=== PATIENT | female | born 2000 | race Caucasian/White ===

== ENCOUNTER 2024-02-15 13:26 | Emergency (ER) | payer BC, SELFPAY ==
[2024-02-15 13:26] VITALS: BMI 26.5
[2024-02-15 13:38] VITALS: BP 140/90
--- NOTE | 2024-02-15 14:07 | ED.GENMED ---
History of Present Illness
General
Chief Complaint: Cold/Flu/URI Symptoms
Source: patient
Time Seen by Provider: 02/15/24 13:46
History of Present Illness
History of Present Illness:
23yoF with a history of anxiety and depression presenting for evaluation of a cough. Patient initially started with URI symptoms last week. She was treated with a Z-Maksim and symptoms improved although she had a lingering cough. She started to get
URI symptoms again 3 days ago. Symptoms include cough, congestion, ear pressure, swollen glands, and diarrhea. She also had a fever of 101 2 days ago. She was seen by her PCP 3 days ago and was started on amoxicillin and a Medrol Dosepak.
Symptoms have not gotten any better since starting these medications. She now reports a sharp central chest pain. Pain is worse with deep breathing and if she lays flat.
Phy Exam
General Physical Exam
General Presentation: well appearing and no apparent distress
General age: appears stated age
General Skin: warm and dry
General Habitus: normal
General Mental: alert
General Hydration: appears well hydrated
ENT Exam
ENT Exam: TM's normal, pharynx normal, neck supple, normocephalic and lymphnodes
Eye Exam
Eye Exam: conjunctiva normal
Cardiovascular Exam
Cardiovascular Exam: regular rate/rhythm and no murmur
Pulmonary Exam
Pulmonary Exam: lungs clear, no respiratory distress, no rales, no crackles and no rhonchi
Neurological Exam
Neurological Exam: alert
Ramiro Coma Scale
Eye Opening: Spontaneous
Verbal Response: Oriented
Motor Response: Obeys Commands
GCS Total Score: 15
Skin Exam
Skin Exam: normal color and warm/dry
Psychiatric Exam
Psychiatric Exam: normal mood/affect
Course
Orders/Labs/Results
Orders:
Orders
02/15/24 13:45
CXR2 [CR Chest - 2 Views ] Urgent
Comment:
Reason For Exam: cough for two wks
02/15/24 14:07
Electrocardiogram (*1) Urgent
Reason for Study: Chest Pain
EKG- Treatment ONCE
Test Result ONCE
02/15/24 14:27
COVID-19 Antigen Urgent
Source: Nasal Swab
Complete Blood Count/With Diff Urgent
Comprehensive Metabolic Panel Urgent
D-Dimer Urgent
HCG, Serum Qualitative Screen Urgent
Troponin I Urgent
Influenza A+B Rapid Molecular Urgent
ALON Source: Nasal Swab
Specimen Description:
Abnormal Lab Results
02/15/24
14:27
WBC 11.3 H 10^3/uL
(4.8-10.8)
MCH 31.2 H pg
(27.0-31.0)
Abs Immat Gran (auto) 0.2 H 10^3/uL
(0-0.05)
Absolute Neuts (auto) 9.2 H 10^3/uL
(1.4-6.5)
Absolute Monos (auto) 0.7 H 10^3/uL
(0.1-0.6)
Immature Gran % 1.7 H %
(0-0.5)
Neutrophils % 81.0 H %
(42.2-75.2)
Lymphocytes % 10.2 L %
(20.5-51.1)
AST 50 H U/L
(14-36)
02/15/24 14:27
02/15/24 14:27
Vital Signs
Initial and Last Documented VS:
Initial Vital Signs
Temp Pulse Resp BP Pulse Ox
98.0 F 111 18 140/90 98
02/15/24 13:38 02/15/24 13:38 02/15/24 13:38 02/15/24 13:38 02/15/24 13:38
Last Documented Vital Signs
Temp Pulse Resp BP Pulse Ox
98.0 F 86 18 101/62 98
02/15/24 13:38 02/15/24 15:45 02/15/24 15:45 02/15/24 15:00 02/15/24 15:45
MDM/Problems Addressed
Differential Diagnosis Includes:
23yoF here with URI symptoms, cough, and chest pain. Currently on amoxicillin and Medrol dose pack for 3 days but not getting better. HR 111. Remainder of labs unremarkable. Oxygen saturation 98% on room air. She is well-appearing in no acute
distress. Exam is reassuring. Differential diagnosis includes but is not limited to: Viral illness, bronchitis, pneumonia, sinusitis
Initial ED plan: Check cardiac labs, D-dimer, EKG, COVID/flu swab, and chest x-ray.
*EKG
Interpreted by ED Provider?: Yes
EKG Intrepretation Date: 02/15/24
Heart Rate: 92
Rate: normal
Rhythm: sinus
[place]: normal axis
Interval: normal interval
QRS Pattern: normal QRS
Ischemia: no ischemia
*Critical Care Note
Total Time (30-74mins, 75-104mins- exclusive of procedures): Not Applicable
Update Note
Update Note:
Labs reveal a mild leukocytosis with a white count of 11.3 which may be secondary to steroid use. AST 50, remainder of LFTs are normal. EKG shows normal sinus rhythm without ischemic changes and troponin WNL. D-dimer normal making PE very
unlikely. COVID/flu swab negative. Chest x-ray is clear without infiltrates. Clinical presentation consistent with a viral upper respiratory infection which is likely why the antibiotics are not helping. Recommend continued supportive care and
follow-up with PCP. ED return precautions discussed. Patient and mother expressed understanding and are in agreement with plan. She was discharged stable condition.
ED Attending Note
-
Portions of this chart may have been created with voice recognition software.� Occasional wrong word or��sound alike� substitutions may have occurred due to the inherent limitations of voice recognition software.
Discharge Plan
Departure
Patient Disposition: Home (Routine Discharge)
Date of Disposition: 02/15/24
Time of Disposition: 15:51
Patient with high blood pressure during this ER visit?: No
Discharge Problem:
Upper respiratory infection
Instructions: Viral Upper Respiratory Infection, Adult (DC)
Referrals:
Raymundo Chin Jr., MD [Family Provider] -
Stand Alone Forms: Return to Work
Activity Restrictions/Additional Instructions:
Drink plenty of fluids and rest. Use honey and humidifier for cough. Use Flonase nasal spray, Mucinex, and Sudafed for congestion.
Please follow-up with your family doctor next week. Return to the ER with any new or worsening symptoms.
Interventions
Interventions:
*Risk Screen - Suicide Last Done: 02/15/24 13:38
*General Assessment Last Done: 02/15/24 16:02
*Neglect/Abuse Screening Last Done: 02/15/24 13:38
ED- Fall Risk Assessment Last Done: 02/15/24 15:27
*ED COVID-19 Vaccine History Last Done: 02/15/24 14:57
*Nursing Disposition Last Done: 02/15/24 16:02
ED- Pulmonary Assessment Last Done: 02/15/24 15:27
Discharge Date and Time
Discharge Date/Time: 02/15/24 16:03
Print Language: MARSHALLESE
[2024-02-15 14:36] VITALS: BP 101/67
[2024-02-15 14:51] LABS: % Basophils 0.4 % (0-2); % Eosinophils 0.4 % (0-6); % Immature Granulocytes 1.7 % (0-0.5); % Lymphocytes 10.2 % (20.5-51.1); % Monocytes 6.3 % (1.7-9.3); Absolute Eosinophils 0.1 10^3/uL (0-0.7); Absolute Immature Granulocytes 0.2 10^3/uL (0-0.05); Absolute Lymphocytes 1.2 10^3/uL (1.2-3.4); Absolute Monocytes 0.7 10^3/uL (0.1-0.6); Absolute Neutrophils 9.2 10^3/uL (1.4-6.5); Hematocrit 42.7 % (37.0-47.0); Hemoglobin 14.3 g/dL (12.0-16.0); Mean Corp Hgb Conc. 33.5 g/dL (33.0-37.0); Mean Corpuscular Hgb 31.2 pg (27.0-31.0); Mean Corpuscular Volume 93.2 fL (81.0-99.0); Mean Platelet Volume 10.1 fL (7.4-10.4); Nucleated Red Blood Cells % 0 %; Platelet Count 261 10^3/uL (130-400); Red Blood Cell Count 4.58 10^6/uL (4.20-5.40); Red Cell Dist. Width 12.8 % (11.5-14.5); White Blood Cell Count 11.3 10^3/uL (4.8-10.8)
[2024-02-15 15:00] VITALS: BP 101/62
[2024-02-15 15:07] LABS: HCG, Serum Qualitative Screen Negative
[2024-02-15 15:08] LABS: COVID-19 Antigen Negative (Negative)
[2024-02-15 15:11] LABS: D-Dimer 0.32 ug/mlFEU (0.00-0.50)
[2024-02-15 15:14] LABS: ALT (SGPT) 33 U/L (0-35); AST (SGOT) 50 U/L (14-36); Albumin 4.6 g/dl (3.5-5.0); Alkaline Phosphatase 50 U/L (38-126); Blood Urea Nitrogen 13 mg/dl (7-17); Calcium 9.4 mg/dl (8.4-10.2); Carbon Dioxide 26 mmol/L (22-30); Chloride 102 mmol/L (98-107); Glucose 79 mg/dl (70-99); Potassium 3.8 mmol/L (3.5-5.1); Sodium 140 mmol/L (135-145); Total Bilirubin 0.9 mg/dl (0.2-1.3); Total Protein 7.2 g/dl (6.3-8.2); eGFR > 60.00
[2024-02-15 15:18] LABS: Troponin I < 0.012 ng/ml
== END 2024-02-15 16:03 | disposition home or self-care (01) ==
LOC: EMR 13:26
PROVIDERS: Physician Assistant; EMERGENCY PHYSICIAN Emergency Medicine; FAMILY PHYSICIAN Internal Medicine
DX: J06.9 Acute upper respiratory infection, unspecified (principal); F41.8 Other specified anxiety disorders
CPT/HCPCS: 99283; 71046; 80053; 84484; 84703; 85025; 85379; 87502; 87811; 93005

== ENCOUNTER 2024-12-05 11:53 | Emergency (ER) | payer BC, SELFPAY ==
[2024-12-05 11:58] VITALS: BP 110/68
--- NOTE | 2024-12-05 12:40 | ED.GENMED ---
History of Present Illness
General
Chief Complaint: Crisis Evaluation
Time Seen by Provider: 12/05/24 12:11
History of Present Illness
History of Present Illness:
FOCUSED PAST MEDICAL HISTORY
- The patient has a history of anxiety/depression
REVIEW OF OLD RECORDS
-Note:
CHIEF COMPLAINT(S)
Severe anxiety and anhedonia.
HISTORY OF PRESENT ILLNESS
The patient is a 23-year-old female with a history of anxiety and depression. She was initially prescribed escitalopram 10 mg four years ago by her primary care physician, who recently increased the dosage to 20 mg due to persistent symptoms.
Despite this adjustment, the patient continues to experience severe anxiety and anhedonia. She also reports some chest discomfort. The patient denies any suicidal attempts but admits to experiencing vague passive thoughts without any intention to
act on them. She has not consulted with a psychiatrist or psychologist and is encountering difficulties in accessing mental health services.
PHYSICAL EXAM
- General: Well appearing in no distress
- HEENT: Moist oral mucosa
- Cardiovascular: No murmurs, normal heart rate, regular rhythm, No chest wall tenderness
- Pulmonary: No respiratory distress, breath sounds are clear and equal
- Abdomen: Soft with no peritoneal signs, no tenderness
- Neurologic: Excellent strength all extremities, no coordination deficits
- Psychiatric: Appropriate mental status, but has somewhat of a flat depressed affect
- Extremities: Nontender, no edema, moves all extremities equally
- Skin: No rash, no lesions
CHRONIC MEDICAL CONDITIONS SIGNIFICANTLY AFFECTING CARE
- Anxiety
- Depression
PLAN
- Perform an electrocardiogram (ECG) to assess cardiac status due to reported chest discomfort.
- Arrange for the crisis team to evaluate the patient to address her severe anxiety and ongoing depressive symptoms.
DIFFERENTIAL DIAGNOSIS
The Differential Diagnosis includes, in no particular order and is not limited to:
- Major Depressive Disorder
- Generalized Anxiety Disorder
- Panic Disorder
- Adjustment Disorder with Anxiety
- Dysthymia
- Post-Traumatic Stress Disorder
- Substance-Induced Anxiety Disorder
- Social Anxiety Disorder
- Cardiogenic Chest Pain
- Angina
EKG
- Sinus 57, normal axis, no acute ST abnormality
UPDATE
- At 12:30 PM, I have asked crisis for crisis consultation.
SUMMARY OF ENCOUNTER
The patient was seen in the emergency department due to severe anxiety and anhedonia, despite an increased dosage of escitalopram. Given persistent symptoms and reported chest discomfort, an electrocardiogram (ECG) was planned to assess cardiac
status. The crisis team evaluated the patient owing to severe anxiety and ongoing depressive symptoms, recognizing difficulties in accessing mental health services. The day care worker is attempting to contact local therapists to arrange for close
outpatient follow-up.
DISPOSITION
Discharge with close outpatient follow-up recommended by the crisis team.
PLAN
Perform an ECG to assess cardiac status due to reported chest discomfort. Arrange for follow-up with a mental health professional to address persistent anxiety and depressive symptoms.
PATIENT EDUCATION AND COUNSELING
The patient was informed about the importance of following up with mental health services and the significance of monitoring any new or worsening symptoms, particularly those related to chest discomfort.
FOLLOW-UP INSTRUCTIONS
Please call the office immediately to schedule a follow-up visit with a mental health professional as arranged by the crisis team.
MEDICAL DECISION MAKING
- Complexity of Data Reviewed: Chronic conditions affecting care include anxiety and depression. Differential diagnoses considered include Major Depressive Disorder, Generalized Anxiety Disorder, Panic Disorder, Adjustment Disorder with Anxiety,
Dysthymia, Post-Traumatic Stress Disorder, Substance-Induced Anxiety Disorder, Social Anxiety Disorder, Cardiogenic Chest Pain, and Angina.
- Data:
Category 1: ECG ordered for reported chest discomfort.
Category 3: Discussion of management with the crisis team who evaluated the patient and recommended close outpatient follow-up.
-Risk: Consideration of Admission/Observation was considered given the complexity and risk of the patients presenting complaint and underlying conditions. However, the patient is considered safe for outpatient management with close follow-up.
DIAGNOSIS
Severe Depressive Episode (F32.2)
Phy Exam
Physical Exam
Physical Exam:
See HPI
Course
Orders/Labs/Results
Orders:
Orders
12/05/24 12:15
Electrocardiogram (*1) Urgent
Reason for Study: Chest Pain
Crisis Consult Routine
Reason for Consult: SI
EKG- Treatment ONCE
Vital Signs
Initial and Last Documented VS:
Initial Vital Signs
Temp Pulse Resp BP Pulse Ox
36.7 C 74 16 110/68 98
12/05/24 11:58 12/05/24 11:58 12/05/24 11:58 12/05/24 11:58 12/05/24 11:58
Last Documented Vital Signs
Temp Pulse Resp BP Pulse Ox
36.7 C 74 16 110/68 98
12/05/24 11:58 12/05/24 11:58 12/05/24 11:58 12/05/24 11:58 12/05/24 12:42
*Pulse Oximetry
SaO2: 98
Oxygen Mode of Delivery: Room air
Patient hypoxic: no
*Critical Care Note
Total Time (30-74mins, 75-104mins- exclusive of procedures): Not Applicable
ED Attending Note
-
Portions of this chart may have been created with voice recognition software.� Occasional wrong word or��sound alike� substitutions may have occurred due to the inherent limitations of voice recognition software.
Discharge Plan
Departure
Patient Disposition: Home (Routine Discharge)
Date of Disposition: 12/05/24
Time of Disposition: 13:52
Patient with high blood pressure during this ER visit?: Yes
Discharge Problem:
Depression
Instructions: Depression, Adult (DC)
Activity Restrictions/Additional Instructions:
Follow-up as recommended by crisis. Crisis indicated that they are trying to contact therapists who could get you in to be seen sooner. EKG and vital signs are normal. Return here if worse or other concerns.
Interventions
Interventions:
*Risk Screen - Suicide Last Done: 12/05/24 11:58
*Neglect/Abuse Screening Last Done: 12/05/24 11:58
Discharge Date and Time
Print Language: WELSH
== END 2024-12-05 14:24 | disposition home or self-care (01) ==
LOC: EMR 11:53
PROVIDERS: EMERGENCY PHYSICIAN Emergency Medicine; FAMILY PHYSICIAN Internal Medicine
DX: F32.A Depression, unspecified (principal); F41.9 Anxiety disorder, unspecified; R07.89 Other chest pain
CPT/HCPCS: 99283; 93005